=== PATIENT | male | born 1940 | race Caucasian/White ===

== ENCOUNTER 2016-06-27 19:10 | Emergency (ER) | payer MEDICARE, OTHER ==
[2016-06-27 18:48] LABS: BASOPHILS 0.3 %; BASOPHILS ABSOLUTE 0.02 10/3/uL (0.0-0.16); EOSINOPHILS 2.5 %; EOSINOPHILS ABSOLUTE 0.16 10/3/uL (0.0-0.53); IMMATURE GRANULOCYTES 0.2 %; IMMATURE GRANULOCYTES ABSOLUTE 0.01 10/3/uL (0.0-0.11); LYMPHOCYTES 32.2 %; LYMPHOCYTES ABSOLUTE 2.03 10/3/uL (0.67-4.30); MEAN CORPUS HGB CONC 33.6 g/dL (32.0-36.0); MEAN CORPUSCULAR HEMOGLOB 31.6 pg (26.0-34.0); MEAN CORPUSCULAR VOLUME 94.2 fL (80-100); MEAN PLATELET VOLUME 10.4 fL (9.2-13.0); MONOCYTES 7.8 %; MONOCYTES ABSOLUTE 0.49 10/3/uL (0.21-1.20); NEUTROPHILS ABSOLUTE 3.59 10/3/uL (2.02-8.40); PLATELET COUNT 165 10/3/uL (150-400); RBC DISTRIBUTION WIDTH 14.1 % (12.0-16.0); WHITE BLOOD CELLS 6.3 10/3/uL (4.5-10.5)
[2016-06-27 18:51] LABS: HEMATOCRIT 43.5 % (40.0-51.0); HEMOGLOBIN 14.6 g/dL (13.6-17.8); MANUAL DIFF NO %; RED CELL COUNT 4.62 10/6/uL (4.7-6.1)
[2016-06-27 18:56] LABS: INTERNATIONAL NORMAL RATI 1.9 UNITS (-); PARTIAL THROMBO TIME 32.3 SEC (22.5-37.2)
[2016-06-27 18:59] LABS: PROTIME (NOT ORD) 21.5 SEC (12.0-14.5)
[2016-06-27 19:05] LABS: BUN (BLOOD UREA NITROGEN) 14 MG/DL (6-23); CALCIUM, SERUM 9.1 MG/DL (8.5-10.4); CHEST PAIN PROFILE TAT 0 Hrs 21 Mins; CHLORIDE, SERUM 106 MMOL/L (96-112); CO2 (CARBON DIOXIDE) 26 MMOL/L (24-34); CREATININE 0.97 MG/DL (0.70-1.30); GFR AFRICAN AMERICAN 89 ML/MIN (>=60); GFR NON AFRICAN AMERICAN 77 ML/MIN (>=60); POTASSIUM, SERUM 3.8 MMOL/L (3.5-5.3); SODIUM, SERUM 142 MMOL/L (135-148); TROPONIN I 0.02 NG/ML (<0.05)
[2016-06-27 19:06] LABS: GLUCOSE, SERUM 122 MG/DL (60-99)
[~2016-06-27 19:10] MED LIST: ACET500CAP PO; ASAB PO; BETAPACE80 PO; CORDARONE PO; COUMADIN7.5 MG PO; FISH-EPA1000 MG PO; HERBAL LAXATIVE PO; JANTOVEN1 MG PO; JANTOVEN5 MG PO; JANTOVEN6 MG PO; LOP25 PO; LOP50 PO; METAMUCIL PO; NIACOR500 MG PO; PLAVIX PO; PRAVACHOL40 MG PO; PRILO PO; PRIN20 PO; PROTONIX PO; WARFARIN OR
[2016-12-01] MEDS ORDERED: COREG3 PO (14:10)
[2016-12-01] MEDS ORDERED: PRIN10 PO (14:11)
[2016-12-01] MEDS ORDERED: ACET500CAP PO (14:15)
== END 2016-06-27 21:50 | disposition home or self-care (01) ==
LOC: ER 19:10
PROVIDERS: Emergency Medicine
DX: I48.91 Unspecified atrial fibrillation (principal); Z98.61 Coronary angioplasty status; Z88.8 Allergy status to other drugs, medicaments and biological substances; Z79.82 Long term (current) use of aspirin
CPT/HCPCS: 71020; 80048; 82962; 83735; 83880; 84484; 85025; 85610; 85730; 93005; 93225; 93226; 96374; 99291